=== PATIENT | female | born 1975 | race Hispanic/Latino ===

== ENCOUNTER 2019-02-22 19:06 | Emergency (ER) | payer SELFPAY ==
[~2019-02-22] VITALS: Ht 162.6 cm; Wt 113.4 kg
--- OUTSIDE RECORDS SUMMARY | 2019-02-22 19:10 | XMS REPORT | Encounter Summary ---
Author Organization Unknown Address [address] [place] [address] Phone [phone] Care Team Providers Care Joiner Helper Name Role Phone Cliff Enamorado MD 3 [phone] Reason for Visit diabetic foot exam; other - see typed reason; swelling/edema; diabetes; blood pressure Instructions 1. Type 2 diabetes mellitus metformin 500 mg tablet diabetic ophthalmology referral microalbumin:creatinine ratio, urine HbA1c (hemoglobin A1c), blood 2. Benign essential hypertension lisinopril 10 mg-hydrochlorothiazide 12.5 mg tablet 3. Hyperlipidemia high cholesterol: care instructions lipid panel, serum CMP, serum or plasma TSH, serum or plasma 4. Diabetic peripheral neuropathy 5. Immunization refused Discussion Note: None recorded. Plan of Care Reminders Provider Appointments Return to Office on or around 02/27/2019 Cliff Rascon MD Lab Microalbumin:creatinine Ratio, Urine 01/27/2019 [facility] Lipid Panel, Serum 01/27/2019 [facility] CMP, Serum or Plasma 01/27/2019 [facility] TSH, Serum or Plasma 01/27/2019 [facility] HbA1C (Hemoglobin a1C), Blood 01/27/2019 [facility] Referral Diabetic Ophthalmology Referral 01/27/2019 Procedures None recorded. Surgeries None recorded. Imaging None recorded. Medications Name Start Date lisinopril 10 mg-hydrochlorothiazide 12.5 mg tablet Take 1 tablet every day by oral route as directed for 30 days. lisinopril 5 mg tablet Take 1 tablet every day by oral route. metformin 500 mg tablet Take 1 tablet twice a day by oral route for 90 days. Medications Administered None recorded. Vitals Height Weight BMI Blood Pressure 5 ft 4 in 254 lbs 43.6 kg/m2 (1) 148/104 mm[Hg] (2) 140/96 mm[Hg] Lab Results None recorded. Allergies Code Code System Name Reaction Severity Status Onset NKDA Problems Name Status Onset Date Source Type 2 Diabetes Mellitus Active 01/27/2019 Hyperlipidemia Active 01/27/2019 Hypertensive Disorder Active 01/27/2019 Procedures Date Name Performed by 11/12/1996 Caesarean Section Information not available 11/12/1994 Caesarean Section Information not available 11/12/1992 Caesarean Section Information not available 11/12/1991 Caesarean Section Information not available Vaccine List None recorded. Social History Smoking Status Current Some Day Smoker Past Encounters 01/27/2019 Type 2 Diabetes Mellitus; Benign Essential Hypertension; Hyperlipidemia; Diabetic Peripheral Neuropathy; Immunization Refused Cliff Rascon MD: [address] [place] [address], Ph. History of Present Illness Note:Hx of DM, HLD and HTN coming to establish care. Not taking statins. Glucose readings at home 215s-320s postprandial. BPs at home 160s/90s. No side effects with meds. Complaining of sharp pains in the legs on and off since 6 months ago and bilateral LE edema. Denies numbness or tingling. Review of Systems Comprehensive General Adult ROS Reported By: Patient Constitutional: Constitutional: no fever Eyes: Eyes: no vision change Cardiovascular: Cardiovascular: no chest pain, no palpitations, no lightheadedness Respiratory: Respiratory: no cough, no wheezing, no shortness of breath Gastrointestinal: Gastrointestinal: no abdominal pain, no nausea, no vomiting, no constipation, no diarrhea Musculoskeletal: Musculoskeletal: no muscle aches, swelling in the extremities Neurologic: Neurologic: no loss of consciousness, no headaches, numbness Psychiatric: Psych: no depression, no alcohol abuse, no anxiety, no suicidal thoughts Endocrine: Endocrine: no fatigue Physical Exam General Adult Exam (male) Reported By: Patient Constitutional: General Appearance: healthy-appearing, morbidly obese. Level of Distress: NAD. Ambulation: ambulating normally Psychiatric: Insight: good judgement. Mental Status: active and alert, normal mood, normal affect. Orientation: to time, to place, to person. Memory: recent memory normal, remote memory normal Eyes: Lids and Conjunctivae: non-injected, no discharge ENMT: Ears: TMs clear. Nose: no sinus tenderness. Lips, Teeth, and Gums: no mouth or lip ulcers. Oropharynx: moist mucous membranes Neck: Neck: supple, trachea midline. Thyroid: no enlargement, non-tender Lungs: Auscultation: breath sounds normal Cardiovascular: Heart Auscultation: RRR, normal S1, normal S2, no murmurs. Neck vessels: no carotid bruits. Pulses including femoral / pedal: normal throughout Musculoskeletal:: Motor Strength and Tone: normal, normal tone. Joints, Bones, and Muscles: normal movement of all extremities; legs: tender with palpation. Extremities: edema Neurologic: Gait and Station: normal gait. Sensation: grossly intact. Reflexes: DTRs 2+ bilaterally throughout Skin: Inspection and palpation: no rash, no lesions
--- OUTSIDE RECORDS SUMMARY | 2019-02-22 19:10 | XMS REPORT | Encounter Summary ---
Author Organization Unknown Address [address] [place] [address] Phone [phone] Care Team Providers Care Middle School Teacher Name Role Phone Cliff Enamorado MD 3 [phone] Reason for Visit diabetic foot exam; other [...] serum or plasma 4. Diabetic peripheral neuropathy gabapentin 300 mg capsule 5. Immunization refused Discussion Note: None recorded. Plan of Care Reminders Provider Appointments Return to Office on or around 02/27/2019 Cliff Rascon MD Lab Microalbumin:creatinine Ratio, Urine 01/27/2019 [facility] Lipid Panel, Serum 01/27/2019 [facility] CMP, Serum or Plasma 01/27/2019 [facility] TSH, Serum or Plasma 01/27/2019 [facility] HbA1C (Hemoglobin a1C), Blood 01/27/2019 [facility] Referral Diabetic Ophthalmology Referral 01/27/2019 Procedures None recorded. Surgeries None recorded. Imaging None recorded. Medications Name Start Date gabapentin 300 mg capsule Take 1 capsule every day by oral route at bedtime for 30 days. lisinopril 10 mg-hydrochlorothiazide 12.5 mg tablet Take [...] Neuropathy; Immunization Refused Cliff Rascon MD: [address] [place] [address], Ph. History of Present Illness Note:Hx of [...]
--- OUTSIDE RECORDS SUMMARY | 2019-02-22 19:10 | XMS REPORT ---
Author Author [facility] Address Unknown Phone Unavailable Care Team Providers Care Assistant Professor Of Music Name Role Phone Unavailable Unavailable Payers Payer Name Policy Type Policy Number Effective Date Expiration Date Problems This patient has no known problems. Allergies, Adverse Reactions, Alerts Allergy Name Allergy Type Status Severity Reaction(s) Onset Date Inactive Date Treating Clinician Comments No Known Allergies DA Active U 2018 00:00:00 Medications This patient has no known medications. Results Test Description Test Time Test Comments Text Results Atomic Results Result Comments - DUP AB/PEL/SC COMP 2018 07:23:00 Name: ADDI AMEZQUITA [facility] : 1975 Age/S: 43 / F [address] Unit #: [id number] Loc: [place] [address] Phys: Renea Diamond MD Acct: [id number] Dis Date: Status: REG ER PHONE #: [phone] Exam Date: 2018 0642 FAX #: [phone] Reason: LARGE R OVARIAN CYST, CHECK FOR TORSION EXAMS: CPT CODE: [id number] DUP AB/PEL/SC COMP 34228 REASON FOR EXAM: LARGE R OVARIAN CYST, CHECK FOR TORSION EXAM ORDER DATE: 2018 6:27 AM Attending Aileen: Renea Diamond MD PROCEDURE: - US TRANSVAGINAL NON OB, - US PELVIS COMPLETE, - DUP AB/PEL/SC COMP FINDINGS: The transabdominal ultrasound shows the uterus measured 12.9 x 4.7 cm. The right ovary measured 3.4 x 4.4 cm. The left ovary was not seen. No evidence of free fluid. No evidence of adnexal mass. The transvag inal ultrasound shows no discrete mass in the uterus. The transvaginal is limited due to patient being in severe pain not being able to tolerate the exam . The right ovarian cyst noted measuring 3.4 x 2.6 cm Unremarkable ovarian flow is seen. Duplex scans of the ovarian arteries were performed. Osullivan scale images were supplemented with color-flow Doppler. Doppler flow velocity analysis (duplex Doppler) was performed. No fluid seen in the cul-de-sac. IMPRESSION: Right ovarian cyst 3.4 x 2.6 cm. Nonvisualization of the left ovary. Flow is seen within the right ovary. at 0723 Reported and signed by: Alberto Olivera M.D. CC: Technologist: KT JEFFERSON RDMS Trnscb Date/Time: 2018 (722) tEDMAR Orig Print D/T: S: 2018 (0726) Probe: PAGE 1 Signed Report - US TRANSVAGINAL NON OB 2018 07:23:00 Name: ADDI AMEZQUITA [facility] : 1975 Age/S: 43 / F [address] [facility] Unit #: [id number] Loc: [place] [address] Phys: Renea Diamond MD Acct: [id number] Dis Date: Status: REG ER PHONE #: [phone] Exam Date: 2018 0642 FAX #: [phone] Reason: LARGE R OVARIAN CYST, CHECK FOR TORSION EXAMS: CPT CODE: [id number] [place] [address] REASON FOR EXAM: LARGE R OVARIAN CYST, CHECK FOR TORSION EXAM ORDER DATE: 2018 6:27 AM Attending Aileen: Renea Diamond MD PROCEDURE: - US TRANSVAGINAL NON OB, - US PELVIS COMPLETE, - DUP AB/PEL/SC COMP FINDINGS: The transabdominal ultrasound shows the uterus measured 12.9 x 4.7 cm. The right ovary measured 3.4 x 4.4 cm. The left ovary was not seen. No evidence of free fluid. No evidence of adnexal mass. The transvag inal ultrasound shows no discrete mass in the uterus. The transvaginal is limited due to patient being in severe pain not being able to tolerate the exam . The right ovarian cyst noted measuring 3.4 x 2.6 cm Unremarkable ovarian flow is seen. Duplex scans of the ovarian arteries were performed. Osullivan scale images were supplemented with color-flow Doppler. Doppler flow velocity analysis (duplex Doppler) was performed. No fluid seen in the cul-de-sac. IMPRESSION: Right ovarian cyst 3.4 x 2.6 cm. Nonvisualization of the left ovary. Flow is seen within the right ovary. at 0723 Reported and signed by: Alberto Olivera M.D. CC: Technologist: KT JEFFERSON RDMS Trnscb Date/Time: 2018 (722) tMICHELLEL Orig Print D/T: S: 2018 (0726) Probe: [id number] PAGE 1 Signed Report - US PELVIS COMPLETE 2018 07:23:00 Name: ADDI AMEZQUITA [facility] : 1975 Age/S: 43 / F [address] [facility] Unit #: [id number] Loc: [place] [address] Phys: Renea Diamond MD Acct: [id number] Dis Date: Status: REG ER PHONE #: [phone] Exam Date: 2018 0642 FAX #: [phone] Reason: LARGE R OVARIAN CYST, CHECK FOR TORSION EXAMS: CPT CODE: [id number] US PELVIS COMPLETE [id number] REASON FOR EXAM: LARGE R OVARIAN CYST, CHECK FOR TORSION EXAM ORDER DATE: 2018 6:27 AM Attending Aileen: Renea Diamond MD PROCEDURE: - US TRANSVAGINAL NON OB, - US PELVIS COMPLETE, - DUP AB/PEL/SC COMP FINDINGS: The transabdominal ultrasound shows the uterus measured 12.9 x 4.7 cm. The right ovary measured 3.4 x 4.4 cm. The left ovary was not seen. No evidence of free fluid. No evidence of adnexal mass. The transvag inal ultrasound shows no discrete mass in the uterus. The transvaginal is limited due to patient being in severe pain not being able to tolerate the exam . The right ovarian cyst noted measuring 3.4 x 2.6 cm Unremarkable ovarian flow is seen. Duplex scans of the ovarian arteries were performed. Osullivan scale images were supplemented with color-flow Doppler. Doppler flow velocity analysis (duplex Doppler) was performed. No fluid seen in the cul-de-sac. IMPRESSION: Right ovarian cyst 3.4 x 2.6 cm. Nonvisualization of the left ovary. Flow is seen within the right ovary. at 0723 Reported and signed by: Alberto Olivera M.D. CC: Technologist: KT JEFFERSON RDMS Trnscb Date/Time: 2018 (722) tEDMAR Orig Print D/T: S: 2018 (0726) Probe: PAGE 1 Signed Report GLUBED 2018 07:11:00 GLUBED (test code=GLUBED) 181 mg/dL 74-106 Performed by certified ham rolling machine operator at [facility] - CT ABD PELVIS W/O [id number] 06:08:00 Name: ADDI AMEZQUITA [facility] : 1975 Age/S: 43 / F [address] [facility] Unit #: [id number] Loc: [place] [address] Phys: Renea Diamond MD Acct: [id number] Dis Date: Status: REG ER PHONE #: [phone] Exam Date: 2018 0564 FAX #: [phone] Reason: R FLANK AND RLQ PAIN EXAMS: CPT CODE: [id number] CT ABD PELVIS W/O CONT 50054 EXAM: - CT ABD PELVIS W/O CONT HISTORY: 43 years -old Female with R FLANK AND RLQ PAIN TECHNIQUE: Contrast - No IV contrast was given. No oral contrast was given Noncontrast phase - abdomen and pelvis including all of kidneys Reconstructions - coronal and sagittal planes Automated exposure reduction (Auto mA/Smart mA) was utilized in compliance with ACR Image [employer]isely COMPARISON: None FINDINGS: Statements: Lack of intravenous contrast compromises evaluation of abdominopelvic organs and vasculature. Lack of oral contrast compromises evaluation of bowel. Thoracic: Included images of the lower chest demonstrate n o abnormalities. Hepatobiliary: There is fatty infiltration of the liver. Visualized gallbladder is contracted. No biliary dilation. Pancreas: Normal. Spleen: Normal. Adre nals: Normal. Genitourinary: The kidneys are normal. There is no evidence of hydronephrosis of either kidney. There is no evidence of reginald l calculus. Evaluation of the bladder is limited, but no obvious bl adder abnormality is present. 3.9 x 2.4 cm right ovarian cyst is noted. Gastrointestinal: Colonic diverticulosis is present. No evidence of diverticulitis. The appendix is normal. Vascular: The aorta is grossly normal in appearance. Bones/Soft Tissues: No acute osseous findings. No ventral hernias. PAGE 1 Signed Report (CONTINUED) Name: ADDI AMEZQUITA [facility] : 1975 Age/S: 43 / F [address] [facility] Unit #: [id number] Loc: [place] [address] Phys: Renea Diamond MD Acct: [id number] Dis Date: Status: REG ER PHONE #: [phone] Exam Date: 539 FAX #: [phone] Reason: R FLANK AND RLQ PAIN EXAMS: CPT CODE: [id number] CT ABD PELVIS W/O CONT 94957 <Continued> Peritoneum/Other: No extraluminal air. No extraluminal fluid. IMPRESSION: 1. No obstructing renal or ureteral calculi. 2. No CT evidence of appendicitis. 3. 4 x 3 cm right ovarian cyst. at 0608 Reported and signed by: Krishna Alcantara MD CC: Technologist:ANJALI CHEN CTDI: DLP: Trnscb Date/Time: 2018 (0608) [email or web address] Orig Print D/T: S: 2018 (0611) CTDI: DLP: PAGE 2 Signed Report URINALYSIS [id number] 05:47:00* Test Item Value Reference Range Comments UA COLOR (test code=COLU) YELLOW YELLOW UA APPEARANCE (test code=APPU) Cloudy CLEAR UA GLUCOSE DIPSTICK (test code=DGLUU) 50 (Trace) mg/dL NEGATIVE UA BILIRUBIN DIPSTICK (test code=BILU) NEGATIVE mg/dL NEGATIVE UA KETONE DIPSTICK (test code=KETU) 5 (Trace) mg/dL NEGATIVE UA SPECIFIC GRAVITY (test code=SGU) 1.026 1.001-1.035 UA BLOOD DIPSTICK (test code=LAUREN) 1+ (Small) NEGATIVE UA PH DIPSTICK (test code=MILAN) 5.0 5.0-8.0 UA PROTEIN DIPSTICK (test code=PROU) Negative mg/dL NEGATIVE UA UROBILINIOGEN DIPSTICK (test code=URO) NEGATIVE mg/dL NEGATIVE UA NITRITE DIPSTICK (test code=ROHINI) NEGATIVE NEGATIVE UA LEUKOCYTE ESTERASE W REFLEX (test code=LEUUR) TRACE NEGATIVE UA WBC (test code=WBCU) 6-10 #/HPF 0-5 UA RBC (test code=RBCU) 3-5 #/HPF 0-5 UA EPITHELIAL CELLS (test code=EPIU) MANY per HPF FEW UA MUCUS (test code=MUCU) MANY #/LPF FEW Urine Source? Clean CatchDRUGS OF ABUSE SCREEN [id number] 05:47:00* Test Item Value Reference Range Comments URN COCAINE (test code=COCAURN) NEGATIVE <300 ng/mL URN CANNABINOIDS (test code=CANNABURN) NEGATIVE <50 ng/mL URN AMPHETAMINE (test code=AMPHETURN) NEGATIVE <1000 ng/mL URN BARBITURATE (test code=BARBITURN) NEGATIVE <200 ng/mL URN BENZODIAZEPINE (test code=BENZOURN) NEGATIVE <200 ng/mL URN OPIATES (test code=OPIATURN) NEGATIVE <300 ng/mL URN PHENCYCLIDINE (PCP) (test code=PHENCURN) NEGATIVE <25 ng/mL URN METHADONE (test code=METHAURN) NEGATIVE <300 ng/mL Urine Source? Clean CatchBASIC METABOLIC [id number] 05:47:00* Test Item Value Reference Range Comments SODIUM (test code=NA) 136 mmol/L 136-145 POTASSIUM (test code=K) 3.6 mmol/L 3.5-5.1 CHLORIDE (test code=CL) 102.0 mmol/L 98-107 CARBON DIOXIDE (test code=CO2) 24.0 mmol/L 21-32 ANION GAP (test code=GAP) 13.6 10-20 GLUCOSE (test code=GLU) 211 mg/dL 74-106 BLOOD UREA NITROGEN (test code=BUN) 10 mg/dL 7-18 GLOMERULAR FILTRATION RATE (test code=GFR) > 60 mL/min >=60 Estimated GFR by using Modified MDRD formula.Chronic kidney disease is defined as either kidney damageor GFR <60 mL/min/1.73 m2 for >3 months. CREATININE (test code=CREAT) 0.70 mg/dL 0.55-1.02 Note change in reference range due to change in reagent. BUN/CREATININE RATIO (test code=BUN/CREA) 14.1 10-20 CALCIUM (test code=CA) 7.8 mg/dL 8.5-10.1 HEPATIC FUNCTION [id number] 05:47:00* Test Item Value Reference Range Comments TOTAL PROTEIN (test code=PROT) 7.5 gram/dL 6.4-8.2 ALBUMIN (test code=ALB) 2.9 g/dL 3.4-5.0 GLOBULIN (test code=GLOB) 4.6 gram/dL 2.7-4.2 ALBUMIN/GLOBULIN RATIO (test code=A/G) 0.6 0.75-1.50 BILIRUBIN TOTAL (test code=BILT) 0.20 mg/dL 0.0-1.0 BILIRUBIN DIRECT (test code=BILD) < 0.05 mg/dL 0.0-0.20 SGOT/AST (test code=AST) 21 IUnit/L 15-37 SGPT/ALT (test code=ALT) 30 IUnit/L 12-78 ALKALINE PHOSPHATASE TOTAL (test code=ALKP) 76 IUnit/L 45-117 Note change in reference range due to change in reagent. [id number] 05:47:00* Test Item Value Reference Range Comments LIPASE (test code=LIP) 112 U/L 73.0-393.0 HCG SERUM [id number] 05:47:00* Test Item Value Reference Range Comments HCG SERUM QUAL (test code=HCGQL) NEGATIVE NEGATIVE This HCGQL test is NOT applicable for MALE patients.Check with nurse about probable order error.If Tumor Marker Test needed, nurse should order test "HCGTU"(Test #550.38504) BASIC METABOLIC [id number] 05:39:00* Test Item Value Reference Range Comments SODIUM (test code=NA) 136 mmol/L 136-145 POTASSIUM (test code=K) 3.6 mmol/L 3.5-5.1 CHLORIDE (test code=CL) 102.0 mmol/L 98-107 CARBON DIOXIDE (test code=CO2) mmol/L 21-32 ANION GAP (test code=GAP) 10-20 GLUCOSE (test code=GLU) mg/dL 74-106 BLOOD UREA NITROGEN (test code=BUN) mg/dL 7-18 GLOMERULAR FILTRATION RATE (test code=GFR) mL/min >=60 CREATININE (test code=CREAT) mg/dL 0.55-1.02 BUN/CREATININE RATIO (test code=BUN/CREA) 10-20 CALCIUM (test code=CA) mg/dL 8.5-10.1 HEPATIC FUNCTION [id number] 05:39:00* Test Item Value Reference Range Comments TOTAL PROTEIN (test code=PROT) gram/dL 6.4-8.2 ALBUMIN (test code=ALB) g/dL 3.4-5.0 GLOBULIN (test code=GLOB) gram/dL 2.7-4.2 ALBUMIN/GLOBULIN RATIO (test code=A/G) 0.75-1.50 BILIRUBIN TOTAL (test code=BILT) mg/dL 0.0-1.0 BILIRUBIN DIRECT (test code=BILD) mg/dL 0.0-0.20 SGOT/AST (test code=AST) IUnit/L 15-37 SGPT/ALT (test code=ALT) IUnit/L 12-78 ALKALINE PHOSPHATASE TOTAL (test code=ALKP) IUnit/L 45-117 [id number] 05:39:00* Test Item Value Reference Range Comments LIPASE (test code=LIP) U/L 73.0-393.0 HCG SERUM [id number] 05:39:00* Test Item Value Reference Range Comments HCG SERUM QUAL (test code=HCGQL) NEGATIVE NEGATIVE This HCGQL test is NOT applicable for MALE patients.Check with nurse about probable order error.If Tumor Marker Test needed, nurse should order test "HCGTU"(Test #550.54994) BASIC METABOLIC [id number] 05:34:00* Test Item Value Reference Range Comments SODIUM (test code=NA) mmol/L 136-145 POTASSIUM (test code=K) mmol/L 3.5-5.1 CHLORIDE (test code=CL) mmol/L 98-107 CARBON DIOXIDE (test code=CO2) mmol/L 21-32 ANION GAP (test code=GAP) 10-20 GLUCOSE (test code=GLU) mg/dL 74-106 BLOOD UREA NITROGEN (test code=BUN) mg/dL 7-18 GLOMERULAR FILTRATION RATE (test code=GFR) mL/min >=60 CREATININE (test code=CREAT) mg/dL 0.55-1.02 BUN/CREATININE RATIO (test code=BUN/CREA) 10-20 CALCIUM (test code=CA) mg/dL 8.5-10.1 HEPATIC FUNCTION [id number] 05:34:00* Test Item Value Reference Range Comments TOTAL PROTEIN (test code=PROT) gram/dL 6.4-8.2 ALBUMIN (test code=ALB) g/dL 3.4-5.0 GLOBULIN (test code=GLOB) gram/dL 2.7-4.2 ALBUMIN/GLOBULIN RATIO (test code=A/G) 0.75-1.50 BILIRUBIN TOTAL (test code=BILT) mg/dL 0.0-1.0 BILIRUBIN DIRECT (test code=BILD) mg/dL 0.0-0.20 SGOT/AST (test code=AST) IUnit/L 15-37 SGPT/ALT (test code=ALT) IUnit/L 12-78 ALKALINE PHOSPHATASE TOTAL (test code=ALKP) IUnit/L 45-117 [id number] 05:34:00* Test Item Value Reference Range Comments LIPASE (test code=LIP) U/L 73.0-393.0 HCG SERUM [id number] 05:34:00* Test Item Value Reference Range Comments HCG SERUM QUAL (test code=HCGQL) NEGATIVE NEGATIVE This HCGQL test is NOT applicable for MALE patients.Check with nurse about probable order error.If Tumor Marker Test needed, nurse should order test "HCGTU"(Test #550.06571) URINALYSIS [id number] 05:24:00* Test Item Value Reference Range Comments UA COLOR (test code=COLU) YELLOW YELLOW UA APPEARANCE (test code=APPU) Cloudy CLEAR UA GLUCOSE DIPSTICK (test code=DGLUU) 50 (Trace) mg/dL NEGATIVE UA BILIRUBIN DIPSTICK (test code=BILU) NEGATIVE mg/dL NEGATIVE UA KETONE DIPSTICK (test code=KETU) 5 (Trace) mg/dL NEGATIVE UA SPECIFIC GRAVITY (test code=SGU) 1.026 1.001-1.035 UA BLOOD DIPSTICK (test code=LAUREN) 1+ (Small) NEGATIVE UA PH DIPSTICK (test code=MILAN) 5.0 5.0-8.0 UA PROTEIN DIPSTICK (test code=PROU) Negative mg/dL NEGATIVE UA UROBILINIOGEN DIPSTICK (test code=URO) NEGATIVE mg/dL NEGATIVE UA NITRITE DIPSTICK (test code=ROHINI) NEGATIVE NEGATIVE UA LEUKOCYTE ESTERASE W REFLEX (test code=LEUUR) TRACE NEGATIVE UA WBC (test code=WBCU) 6-10 #/HPF 0-5 UA RBC (test code=RBCU) 3-5 #/HPF 0-5 UA EPITHELIAL CELLS (test code=EPIU) MANY per HPF FEW UA MUCUS (test code=MUCU) MANY #/LPF FEW Urine Source? Clean CatchDRUGS OF ABUSE SCREEN [id number] 05:24:00* Test Item Value Reference Range Comments URN COCAINE (test code=COCAURN) <300 ng/mL URN CANNABINOIDS (test code=CANNABURN) <50 ng/mL URN AMPHETAMINE (test code=AMPHETURN) <1000 ng/mL URN BARBITURATE (test code=BARBITURN) <200 ng/mL URN BENZODIAZEPINE (test code=BENZOURN) <200 ng/mL URN OPIATES (test code=OPIATURN) <300 ng/mL URN PHENCYCLIDINE (PCP) (test code=PHENCURN) <25 ng/mL URN METHADONE (test code=METHAURN) <300 ng/mL Urine Source? Clean CatchCBC W/O [id number] 05:15:00* Test Item Value Reference Range Comments WHITE BLOOD CELL (test code=WBC) 9.6 K/mm3 4.5-12.5 RED BLOOD CELL (test code=RBC) 4.56 mill/mm3 3.7-5.2 HEMOGLOBIN (test code=HGB) 12.8 gram/dL 11.5-15.5 HEMATOCRIT (test code=HCT) 39.7 % 36.0-46.0 MEAN CELL VOLUME (test code=MCV) 87.1 fL 80-98 MEAN CELL HGB (test code=MCH) 28.1 picogram 27.0-33.0 MEAN CELL HGB CONCETRATION (test code=MCHC) 32.2 gram/dL 33.0-36.0 RED CELL DISTRIBUTION WIDTH (test code=RDW) 13.2 % 11.6-16.2 PLATELET COUNT (test code=PLT) 257 K/mm3 150-450 MEAN PLATELET VOLUME (test code=MPV) 9.8 fL 6.7-11.0
--- OUTSIDE RECORDS SUMMARY | 2019-02-22 19:10 | XMS REPORT | Encounter Summary ---
Author Organization Unknown Address [address] [place] [address] Phone [phone] Care Team Providers Care Nitriles Lab Technician Name Role Phone Cliff Enamorado MD 3 [phone] Reason for Visit diabetic foot exam; other [...] Rascon MD Lab Microalbumin:creatinine Ratio, Urine 01/27/2019 [facility] Lipid Panel, Serum 01/27/2019 [facility] CMP, Serum or Plasma 01/27/2019 [facility] TSH, Serum or Plasma 01/27/2019 [facility] HbA1C (Hemoglobin a1C), Blood 01/27/2019 [facility] Referral Diabetic Ophthalmology Referral [...] Hyperlipidemia; Diabetic Peripheral Neuropathy; Immunization Refused Cliff Rsacon MD: [address] [place] [address], Ph. History of Present Illness Note:Hx of [...] no diarrhea Musculoskeletal: Musculoskeletal: no muscle aches, no swelling in the extremities Neurologic: Neurologic: no [...]
[2019-02-22 19:47] LABS: BASOPHILS % 0.3 % (0.0-1.0); EOSINOPHILS # (AUTO) 0.1 (0.0-0.4); EOSINOPHILS % 0.8 % (0.0-6.0); HEMATOCRIT 37.8 % (34.2-44.1); HEMOGLOBIN 12.8 g/dL (12.0-16.0); MEAN CORPUSCULAR HEMOGLOBIN 28.8 pg (28-32); MEAN CORPUSCULAR HGB CONC 33.9 g/dL (31-35); MEAN CORPUSCULAR VOLUME 84.9 fL (81-99); MONOCYTES # (AUTO) 0.3 (0.2-0.8); MONOCYTES % 2.9 % (4.4-11.3); NEUTROPHILS # (AUTO) 9.2 (2.1-6.9); NEUTROPHILS % 78.6 % (38.7-80.0); PLATELET COUNT 267 x10e3/uL (140-360); RED BLOOD COUNT 4.45 x10e6/uL (3.6-5.1); RED CELL DISTRIBUTION WIDTH 13.2 % (11.7-14.4)
[2019-02-22] MEDS ORDERED: FAMOTIDINE 20 MG/2 ML VIAL IV ONE (20:00)
[2019-02-22] MEDS ORDERED: ONDANSETRON HCL INJ 2MG/ML 2ML 2 MG/ML VIAL IV ONE (20:00)
[2019-02-22 20:07] LABS: CLARITY,URINE HAZY (CLEAR); COLOR,URINE YELLOW (YELLOW)
[2019-02-22 20:08] LABS: BILIRUBIN,URINE NEGATIVE (NEGATIVE); KETONES,URINE NEGATIVE (NEGATIVE); LEUKOCYTE ESTERASE ,URINE NEGATIVE (NEGATIVE); NITRITE,URINE NEGATIVE (NEGATIVE); PROTEIN,URINE DIPSTICK NEGATIVE (NEGATIVE); URINE UROBILINOGEN 0.2 mg/dL (0.2 - 1)
[2019-02-22 20:09] LABS: EPITHELIAL CELLS,URINE MANY /LPF
[2019-02-22 20:13] LABS: BACTERIA,URINE RARE /HPF; WBC,URINE (MAN) 0-5 /HPF (0-5)
[2019-02-22 20:15] LABS: TRICHOMONAS,URINE FEW
[2019-02-22 20:15] LABS: ALANINE AMINOTRANSFERASE 20 IU/L (0-55); ALBUMIN 3.1 g/dL (3.5-5.0); ALBUMIN/GLOBULIN RATIO 0.8 (0.8-2.0); ALKALINE PHOSPHATASE 64 IU/L (40-150); ANION GAP 15.7 mmol/L (8-16); BLOOD UREA NITROGEN 11 mg/dL (7-26); BUN/CREATININE RATIO 14 (6-25); CALCIUM 9.4 mg/dL (8.4-10.2); CARBON DIOXIDE 23 mmol/L (22-29); CHLORIDE 100 mmol/L (98-107); CREATININE, SERUM 0.76 mg/dL (0.57-1.11); EST GLOMERULAR FILTRATION RATE > 60 ML/MIN (60-); GLUCOSE 241 mg/dL (74-118); POTASSIUM 3.7 mmol/L (3.5-5.1); SODIUM 135 mmol/L (136-145)
[2019-02-22 20:16] LABS: MAGNESIUM 1.7 MG/DL (1.3-2.1)
[2019-02-22] MEDS ORDERED: SODIUM CHLORIDE 0.9% 50ML 50 ML ONE (20:25)
[2019-02-22] MEDS ORDERED: IOPAMIDOL 370 MG/ML 200 ML INFUS..BTL INJ ONE (20:25)
[2019-02-22 20:27] LABS: CREATINE KINASE MB 0.7 ng/mL (0-5.0)
[2019-02-22] MEDS ORDERED: SODIUM CHLORIDE 0.9% 1000ML 1,000 ML IV STA ×2 (20:27)
[2019-02-22] MEDS ORDERED: MORPHINE SULFATE INJ 4 MG/ML INJ 1ML IV STA (20:29)
[2019-02-22] MEDS ORDERED: PANTOPRAZOLE 40 MG 10ML VIAL IV STA (20:29)
[2019-02-22 20:59] LABS: CHOL/HDL RATIO 4.9 (3.0-3.6); CHOLESTEROL 171 MD/DL (0-199); HDL CHOLESTEROL 35 MG/DL (40-60); TRIGLYCERIDES 725 MG/DL (0-149)
--- NOTE | 2019-02-22 21:17 | Diagnostic Imaging Report ---
EXAM: CT Abdomen and Pelvis WITH contrast INDICATION: Abdominal pain. Nausea and vomiting. Reappeared epigastric pain. Now radiating to the right lower quadrant x3 days. History of tubal ligation and C-sections. COMPARISON: None. TECHNIQUE: Abdomen and pelvis were scanned utilizing a multidetector helical scanner from the lung base to the pubic symphysis after administration of IV contrast. Coronal and sagittal reformations were obtained. Routine protocol was performed. Scan was performed when during portal venous phase. IV CONTRAST: 100 mL of Isovue 370 ORAL CONTRAST: Water COMPLICATIONS: None RADIATION DOSE: Total DLP: 860.87 mGy*cm Estimated effective dose: (DLP x 0.015 x size factor) mSv CTDIvol has been reviewed. It is below the limits set by the Radiation Protocol Committee (RPC). Dose modulation, iterative reconstruction, and/or weight based adjustment of the mA/kV was utilized to reduce the radiation dose to as low as reasonably achievable. FINDINGS: LINES and TUBES: None. LOWER THORAX: Unremarkable HEPATOBILIARY: The liver is diffuse hypodense compared to the spleen, consistent with diffuse hepatic diffuse hepatic steatosis. No focal hepatic lesions. No biliary ductal dilation. GALLBLADDER: Not well visualized. Likely contracted. SPLEEN: No splenomegaly. PANCREAS: No focal masses or ductal dilatation. ADRENALS: No adrenal nodules KIDNEYS/URETERS: Kidneys enhance symmetrically. No hydronephrosis. No cystic or solid mass lesions. No stones. GI TRACT: No abnormal distention, wall thickening, or evidence of bowel obstruction. There are diverticula within the colon without evidence of diverticulitis. Appendix is normal. PELVIC ORGANS/BLADDER: Uterus is adhesed to the anterior abdominal wall related to previous C-sections. Both ovaries are unremarkable. LYMPH NODES: No lymphadenopathy. VESSELS: Unremarkable. PERITONEUM / RETROPERITONEUM: No free air or fluid. BONES: Unremarkable. SOFT TISSUES: Unremarkable. IMPRESSION: 1. No acute abnormalities in the abdomen or pelvis. 2. Diffuse hepatic steatosis. 3. Scattered colonic diverticula without evidence of diverticulitis. Signed by: Dr. Cristofer Escobar M.D. on 02/22/2019 9:14 PM
[2019-02-22] MEDS ORDERED: ONDANSETRON HCL INJ 2MG/ML 2ML 2 MG/ML VIAL IV STA (22:52)
[2019-02-22] MEDS ORDERED: AZITHROMYCIN 250 MG TAB PO STA (22:52)
[2019-02-22] MEDS ORDERED: CEFTRIAXONE SOD 1 GM/NS 50 ML 50 ML IV ONE (23:00)
== END 2019-02-23 00:20 | disposition home or self-care (01) ==
LOC: ER 19:06
DX: R10.11 Right upper quadrant pain (principal); R10.13 Epigastric pain; R11.2 Nausea with vomiting, unspecified; R19.7 Diarrhea, unspecified; A59.03 Trichomonal cystitis and urethritis; I10 Essential (primary) hypertension; E11.9 Type 2 diabetes mellitus without complications; E78.5 Hyperlipidemia, unspecified
CPT/HCPCS: 36415; 74177; 80053; 80061; 81001; 82150; 82550; 82553; 83605; 83690; 83735; 84484; 85025; 87040; 93005; 96374; 96375; 99283; C9113; J0696; J2270; J2405; J7030; Q9967

== ENCOUNTER 2022-08-30 14:20 | Emergency (ER) | payer SELFPAY ==
[~2022-08-30] VITALS: Ht 162.6 cm; Wt 113.4 kg
[2022-08-30] MEDS ORDERED: LIDOCAINE HCL 1% LOCAL INJ 20 ML VIAL INJ ONE (15:30)
[2022-08-30] MEDS ORDERED: ACETAMINOPHEN-1 EAC4 PO (15:39)
[2022-08-30] MEDS ORDERED: BACTRIM DS TAB1 EACH PO (15:39)
[2022-08-30 15:53] VITALS: BP 151/99
== END 2022-08-30 15:59 | disposition home or self-care (01) ==
LOC: ER 14:25
DX: L02.411 Cutaneous abscess of right axilla (principal); I10 Essential (primary) hypertension; E11.9 Type 2 diabetes mellitus without complications; E78.5 Hyperlipidemia, unspecified
CPT/HCPCS: 99284